=== PATIENT | female | born 1995 | race Caucasian/White ===

== ENCOUNTER 2022-01-06 11:53 | Emergency (ER) | payer OTHER ==
[~2022-01-06] VITALS: Ht 167.6 cm; Wt 88.6 kg
[2022-01-06 13:29] LABS: Urine Bacteria NONE SEEN /hpf (None Seen); Urine Blood 1+ /uL (Negative); Urine Mucus FEW (None Seen); Urine Specific Gravity 1.012 (1.001-1.035); Urine WBC 2 /hpf (0 - 5)
[2022-01-06 14:05] VITALS: BP 145/76
[2022-01-06] MEDS ORDERED: IBUP600T28 PO (14:13)
[2022-01-06] MEDS ORDERED: ACYC-166 PO (14:13)
== END 2022-01-06 14:31 | disposition home or self-care (01) ==
LOC: ER 11:53
DX: B02.9 Zoster without complications (principal)
CPT/HCPCS: 81001